=== PATIENT | female | born 1970 | race Caucasian/White ===

== ENCOUNTER 2023-08-20 02:20 | Emergency (ER) | payer BC, SELFPAY ==
--- NOTE | 2023-08-20 | ECG_ITS ---
Test Reason : FALL Blood Pressure : / mmHG Vent. Rate : 068 BPM Atrial Rate : 068 BPM P-R Int : 116 ms QRS Dur : 090 ms QT Int : 450 ms P-R-T Axes : 084 070 060 degrees QTc Int : 478 ms Normal sinus rhythm T wave abnormality, consider anterior ischemia Abnormal ECG No previous ECGs available Referred By: Generic ED Physician Electronically Signed By:HEIDY KIRKPATRICK
--- NOTE | ~2023-08-20 | US_ITS ---
EXAMINATION: US VENOUS ULTRASOUND WITH DOPPLER LOWER EXTREMITY, LEFT CLINICAL INFORMATION: Syncope. Elevated d-dimer. Pain. COMPARISON: None available. TECHNIQUE: Ultrasound of the deep veins is performed from the hip to the calf with compression sonography and color and pulse Doppler assessment. Spectral analysis with color-flow imaging is performed. FINDINGS: There is normal venous compression and respiratory variation and augmented flow. The visualized common femoral vein, superficial femoral vein, profunda femoral vein, popliteal vein, and the trifurcation region shows no evidence of deep venous thrombosis. There is no significant popliteal fossa cyst. US/US venous duplex LE LT IMPRESSION: No DVT demonstrated in the left lower extremity.
--- NOTE | ~2023-08-20 | CT_ITS ---
EXAMINATION: CT HEAD WITHOUT CONTRAST CT CERVICAL SPINE WITHOUT CONTRAST CLINICAL INFORMATION: Fall. Pain. COMPARISON: None available. TECHNIQUE: Contiguous axial imaging was performed through the head and cervical spine without intravenous administration of contrast. Sagittal and coronal reformatted images obtained. This CT examination was performed using dose optimization techniques as appropriate, variously including the following: *Automated exposure control *Adjustment of mA and/or kV according to patient size (this includes techniques or standardized protocols for targeted exams where dose is matched to indication/reason for exam; i.e. extremities or head) *Use of iterative reconstruction technique DLP: 819 mGy-cm FINDINGS: The lateral, third and fourth ventricles are normally outlined. The cortical sulci and basal cisterns are normally outlined as well. There is no acute territorial defect, hemorrhage or midline shift. The extra-axial spaces are unremarkable. Calvarium/scalp:: Intact. There is mild left forehead soft tissue swelling. Maxillofacial sinuses and mastoids: Clear as visualized. Cervical spine: There is straightening of the expected cervical spine curvature. There are there is mild C5-C6 7 disc degenerative change with loss of disc space, endplate change and mild posterior osteophytes associated with scattered facet osteoarthritic degenerative change without significant spinal canal or significant neural foraminal narrowing there is no fracture. 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 CT/CT head/brain wo IV con IMPRESSION: No acute intracranial abnormality. Mild left forehead soft tissue swelling. C5-C6 disc degenerative change with straightening of the expected cervical spine curvature. No fracture identified.
--- NOTE | ~2023-08-20 | CT_ITS ---
EXAMINATION: CT HEAD WITHOUT CONTRAST CT CERVICAL SPINE WITHOUT CONTRAST CLINICAL INFORMATION: Fall. Pain. COMPARISON: None available. TECHNIQUE: Contiguous axial imaging was performed through the head and cervical spine without intravenous administration of contrast. Sagittal and coronal reformatted images obtained. This CT examination was performed using dose optimization techniques as appropriate, variously including the following: *Automated exposure control *Adjustment of mA and/or kV according to patient size (this includes techniques or standardized protocols for targeted exams where dose is matched to indication/reason for exam; i.e. extremities or head) *Use of iterative reconstruction technique DLP: 819 mGy-cm FINDINGS: The lateral, third and fourth ventricles are normally outlined. The cortical sulci and basal cisterns are normally outlined as well. There is no acute territorial defect, hemorrhage or midline shift. The extra-axial spaces are unremarkable. Calvarium/scalp:: Intact. There is mild left forehead soft tissue swelling. Maxillofacial sinuses and mastoids: Clear as visualized. Cervical spine: There is straightening of the expected cervical spine curvature. There are there is mild C5-C6 7 disc degenerative change with loss of disc space, endplate change and mild posterior osteophytes associated with scattered facet osteoarthritic degenerative change without significant spinal canal or significant neural foraminal narrowing there is no fracture. 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 CT/CT cervical spine wo IV con IMPRESSION: No acute intracranial abnormality. Mild left forehead soft tissue swelling. C5-C6 disc degenerative change with straightening of the expected cervical spine curvature. No fracture identified.
--- NOTE | ~2023-08-20 | CT_ITS ---
EXAMINATION: CT ANGIOGRAM OF THE CHEST WITH AND WITHOUT CONTRAST (CT PULMONARY ANGIOGRAM FOR PE) CLINICAL INFORMATION: Reason for Exam syncope, leg pain, elevated dimer COMPARISON: None available. TECHNIQUE: Prior to contrast administration, noncontrast localization images were obtained. Subsequently, multidetector volumetric imaging was performed from the thoracic inlet to below the diaphragms following the administration of 80 mL Omnipaque 350 intravenous contrast. No contrast reaction reported Sagittal, coronal, and MIP oblique sagittal reformatted images were obtained on the CT workstation, uploaded to PACS, and reviewed. This CT examination was performed using dose optimization techniques as appropriate, variously including the following: *Automated exposure control *Adjustment of mA and/or kV according to patient size (this includes techniques or standardized protocols for targeted exams where dose is matched to indication/reason for exam; i.e. extremities or head) *Use of iterative reconstruction technique Total exam dose-length product 156 mGy-cm FINDINGS: QUALITY OF STUDY/CONTRAST BOLUS: Satisfactory. PULMONARY ARTERIES: No pulmonary emboli. THORACIC AORTA: No aneurysm. LUNG: No focal consolidation, nodules or masses. PLEURA: No pleural effusion or pneumothorax. MEDIASTINUM: Normal heart size. No pericardial effusion. No hilar or mediastinal lymphadenopathy. No evidence of septal bowing or right heart strain. CORONARY ARTERY CALCIFICATION: None visualized on this study. CHEST WALL/AXILLA: No axillary or internal mammary lymphadenopathy. OSSEOUS STRUCTURES: No acute or suspicious osseous abnormality. UPPER ABDOMEN: Unremarkable. Gallbladder has been removed No reflux of contrast into the hepatic veins to suggest elevated right heart pressures. CT/CT angio chest PE protocol IMPRESSION: No evidence of pulmonary embolism VTE: negative
[2023-08-20 02:42] VITALS: BP 109/68; PULSE 70; RESP 16; TEMP 36.4; O2SAT 99; BMI 20.4
--- OUTSIDE RECORDS SUMMARY | 2023-08-20 02:59 | XMS_ITS | Continuity of Care Document ---
Author Name Unknown Organization [facility] Address [address] [place] [address]- Care Team Providers Care Machinist Apprentice Name Role Phone Francine Miranda NP Primary Care Physician [facility] Date(s): 08/13/22 - 12/11/22 [facility] [address] [place] [address]- Attending Physician: Nagi Judd MD Referring Physician: Francine Miranda NP Allergies, Adverse Reactions, Alerts No Known Medication Allergies Medications calcium-vitamin D extended release 2 tablet, By Mouth, Daily in AM, 0 Refills, Maintenance, 11/25/14 9:56:25 Start Date: 11/25/14 Status: Ordered gabapentin 300 mg oral capsule 300 mg, 1, capsule, By Mouth, Daily at bedtime, Refills 0, Maintenance, 03/27/21 16:04:00 EDT, Partial fill upon patient request if the prescription is for a schedule II opioid drug. Start Date: 03/27/21 Status: Ordered LORazepam 0.5 mg oral tablet See Instructions, 1 tablet PO PRN, 0 Refills, Maintenance, 03/31/18 14:10:55 EDT Start Date: 03/31/18 Status: Ordered metoprolol 25 mg oral tablet 12.5 mg, 0.5, tablet, By Mouth, 2 times a day, # 30 tablet, Refills 11, Tot. Refills 11, Maintenance, 04/29/21 9:15:00 EDT, Route to Pharmacy Electronically, [facility]/pharmacy #[id number], 160, cm, 03/27/21 16:03:00 EDT, Height, 52.3, kg, 03/26/21 23:52:00 EDT,... Start Date: 04/29/21 Stop Date: 04/24/22 Status: Ordered Multivitamin By Mouth, Daily, 0 Refills, Maintenance, 11/25/14 9:56:14 Start Date: 11/25/14 Status: Ordered Prozac 20 mg oral capsule 2 capsule = 40 mg, By Mouth, Daily, 0 Refills, Maintenance, 11/25/14 9:55:37 EDT Start Date: 11/25/14 Status: Ordered Problem List Condition Confirmation Course Effective Dates Status H ealth Status Informant Supraventricular tachycardia Confirmed Active Social History Social History Type Response Smoking Status Never smoker entered on: 11/25/14 Sex Patient Care team information Care Team Personnel Name: Francine Miranda NP Position: [facility] Outreach Member Role: PCP Address: Address: [address] [facility] [place] [address]- Care Team Related Persons Name: TRENTON GRIFFIN Address: home [address] [place] [address] Name: MICHELLE OBRIEN Address: [place] [address]
--- OUTSIDE RECORDS SUMMARY | 2023-08-20 02:59 | XMS_ITS | Continuity of Care Document ---
Author Name Unknown Organization [facility] Address [address] [place] [address]- Care Team Providers Care Construction Ironworker Helper Name Role Phone Ruth KASPER, Francine Primary Care Physician [place] [facility] [place] Date(s): 03/30/21 - 04/29/21 [facility] [address] [place] [address]- [place] Allergies, Adverse Reactions, Alerts No Known Medication [...] Status: Ordered LORazepam 0.5 mg oral tablet 1 tablet = 0.5 mg, 0 Refills, Maintenance, 03/31/18 14:10:55 EDT Start Date: 03/31/18 Status: Ordered metoprolol 25 mg oral tablet 12.5 mg, 0.5, tablet, By Mouth, 2 times a day, # 30 tablet, Refills 11, Tot. Refills 11, Maintenance, 04/29/21 9:15:00 EDT, Route to Pharmacy Electronically, [facility]/pharmacy #[id number], 160, cm, 03/27/21 16:03:00 EDT, Height, 52.3, kg, 03/26/21 23:52:00 EDT,... Start Date: 04/29/21 Stop Date: 04/24/22 Status: Ordered Multivitamin By Mouth, Daily, 0 Refills, Maintenance, 11/25/14 9:56:14 Start Date: 11/25/14 Status: Ordered Prozac 20 mg oral capsule 2 capsule = 40 mg, By Mouth, Daily, 0 Refills, Maintenance, 11/25/14 9:55:37 EDT Start Date: 11/25/14 Status: Ordered Wellbutrin SR 150 mg oral tablet, extended release 1 tablet = 150 mg, By Mouth, 2 times a day, 0 Refills, Maintenance, 11/25/14 9:55:48 Start Date: 11/25/14 Status: Ordered Problem List Condition Effective Dates Status Health Status Inform ant Supraventricular tachycardia(Confirmed) Active Social History Social History Type Response Smoking Status Never smoker entered on: 11/25/14 Sex
--- OUTSIDE RECORDS SUMMARY | 2023-08-20 02:59 | XMS_ITS | Continuity of Care Document ---
Author Name Unknown Organization [facility] Address [address] [place] [address]- Care Team Providers Care Marketing Effectiveness Manager Name Role Phone Ruth KASPER, Francine Primary Care Physician [phone] Encounter [facility] Date(s): 06/02/21 - 07/02/21 [facility] [address] [place] [address]- [place] Allergies, Adverse Reactions, Alerts No Known [...] 04/29/21 9:15:00 EDT, Route to Pharmacy Electronically, [facility]/pharmacy #[id number], 160, cm, 03/27/21 16:03:00 EDT, Height, 52.3, [...]
--- OUTSIDE RECORDS SUMMARY | 2023-08-20 02:59 | XMS_ITS | Continuity of Care Document ---
Author Name Unknown Organization [facility] Address [address] [place] [address]- Care Team Providers Care Dye Range Feeder Name Role Phone Ruth KASPER, Francine Primary Care Physician [place] [facility] [place]23 - 07/02/23 [facility] [address] [place] [address]- Attending Physician: Heather Mary Admitting Physician: AdmtrHeather Referring Physician: AdmtrHeather Allergies, Adverse Reactions, Alerts No Known Medication [...] 04/29/21 9:15:00 EDT, Route to Pharmacy Electronically, [facility]/pharmacy #[id number], 160, cm, 03/27/21 16:03:00 EDT, Height, [...] Team Personnel Name: Francine Miranda NP Position: [facility] Outreach Member Role: PCP Address: Address: [address] [place] [address] [place] [address]- Care Team Related Persons Name: TRENTON GRIFFIN Address: home [address] [place] [address] Name: MICHELLE OBRIEN Address: [place] [address]
--- OUTSIDE RECORDS SUMMARY | 2023-08-20 03:00 | XMS_ITS | Continuity of Care Document ---
Author Name Unknown Organization [facility] Address [address] [address]- Care Team Providers Care Director Global Strategic Publisher Sales Name Role Phone Francine Miranda NP Primary Care Physician [phone] Encounter [facility] [id number] Date(s): 04/29/21 - 05/06/21 [facility] [address] [address]- Attending Physician: Nagi Judd MD Admitting Physician: Nagi Judd MD Referring Physician: Nagi Judd MD Allergies, Adverse Reactions, Alerts No Known Medication [...] 04/29/21 9:15:00 EDT, Route to Pharmacy Electronically, [facility]/pharmacy #[id number], 160, cm, 03/27/21 16:03:00 EDT, Height, [...]
--- OUTSIDE RECORDS SUMMARY | 2023-08-20 03:00 | XMS_ITS | Continuity of Care Document ---
Author Name Unknown Organization [facility] Address [address] [place] [address]- Care Team Providers Care Poultry Inseminator Name Role Phone Ruth KASPER, Francine Primary Care Physician Encounter [facility] [place] Date(s): 11/20/21 - 02/14/22 [facility] [address] [place] [address]- Attending Physician: Crissy Larson NP Admitting Physician: Crissy Larson NP Referring Physician: Francine Miranda NP Allergies, Adverse [...] 04/29/21 9:15:00 EDT, Route to Pharmacy Electronically, [facility]/pharmacy #[id number], 160, cm, 03/27/21 16:03:00 EDT, [...]
--- OUTSIDE RECORDS SUMMARY | 2023-08-20 03:00 | XMS_ITS | Continuity of Care Document ---
Author Name Unknown Organization [facility] Address [address] [place] [address]- Care Team Providers Care Auto Parker Name Role Phone Ruth KASPER, Francine Primary Care Physician Encounter [facility] [place] Date(s): 10/05/19 - 10/15/19 [facility] [address] [place] [address]- [facility] Attending Physician: Heather Mary Admitting Physician: Heather Mary Referring Physician: AdmtrHeather Allergies, Adverse Reactions, Alerts No Known Medication Allergies Medications calcium-vitamin D extended release 2 tablet, By Mouth, Daily in AM, 0 Refills, Maintenance, 11/25/14 9:56:25 Start Date: 11/25/14 Status: Ordered LORazepam 0.5 mg oral tablet 1 tablet = 0.5 mg, 0 Refills, Maintenance, 03/31/18 14:10:55 EDT Start Date: 03/31/18 Status: Ordered metoprolol 25 mg oral tablet 12.5 mg, 0.5, tablet, By Mouth, 2 times a day, PRN, # 30 tablet, Refills 0, Tot. Refills 0, Maintenance, palpitations, 06/22/19 8:59:38 EDT, Route to Pharmacy Electronically, [id number], [facility]/pharmacy #[id number] Start Date: 06/22/19 Status: Ordered Multivitamin By Mouth, Daily, 0 [...]
--- OUTSIDE RECORDS SUMMARY | 2023-08-20 03:00 | XMS_ITS | Continuity of Care Document ---
Author Name Unknown Organization [facility] Address [address] [place] [address]- Care Team Providers Care Property Appraiser Name Role Phone Ruth KASPER, Francine Primary Care Physician [place] [facility] [place] Date(s): 09/26/20 - 10/26/20 [facility] [address] [place] [address] Attending Physician: Heather Mary Admitting Physician: AdmHeather gordon Referring Physician: Admtr ArLizzette Allergies, Adverse Reactions, Alerts No Known Medication [...] 06/22/19 8:59:38 EDT, Route to Pharmacy Electronically, [id number], [facility]/pharmacy #[id number] Start Date: 06/22/19 Status: Ordered Multivitamin By [...]
--- OUTSIDE RECORDS SUMMARY | 2023-08-20 03:00 | XMS_ITS | Continuity of Care Document ---
Author Name Unknown Organization [facility] Address [address] [address]- Care Team Providers Care Automotive Engineer Name Role Phone Francine Miranda NP Primary Care Physician [phone] [id number] 04/29/21 - 05/29/21 [facility] [address] [address]- Attending Physician: Heather Mary Admitting Physician: Heather Mary Referring Physician: Heather Mary Allergies, Adverse Reactions, Alerts No Known Medication [...] 04/29/21 9:15:00 EDT, Route to Pharmacy Electronically, [facility]/pharmacy #[id number], 160, cm, 03/27/21 16:03:00 [...]
--- OUTSIDE RECORDS SUMMARY | 2023-08-20 03:00 | XMS_ITS | Continuity of Care Document ---
Author Name Unknown Organization [facility] Address [address] [place] [address]- Care Team Providers Care Hand Tufter Name Role Phone Ruth KASPER, Francine Primary Care Physician [place] [facility] [place] 05/22/21 - 06/21/21 [facility] [address] [place] [address]- [place] Allergies, Adverse Reactions, Alerts No Known [...] 04/29/21 9:15:00 EDT, Route to Pharmacy Electronically, [facility]/pharmacy #[id number], 160, cm, 03/27/21 16:03:00 EDT, Height, 52.3, [...]
--- OUTSIDE RECORDS SUMMARY | 2023-08-20 03:00 | XMS_ITS | Continuity of Care Document ---
Author Name Unknown Organization [facility] Address [address] [place] [address]- Care Team Providers Care Paper Novelty Maker Name Role Phone Francine Miranda NP Primary Care Physician [place] [facility] [place]23 [place] 06/09/23 [facility] [address] [place] [address]- Attending Physician: Nagi Judd MD Referring Physician: [...] 9:15:00 EDT, Route to Pharmacy Electronically, [facility]/pharmacy #[id number], 160, cm, 03/27/21 16:03:00 EDT, [...] ealth Status Informant Supraventricular tachycardia Confirmed Active Vital Signs Most recent to oldest [Reference Range]: 1 Height 160 cm (06/02/23 3:39 PM) Weight 51.3 kg (06/02/23 3:39 PM) Oxygen Saturation [94-100 %] 100 % (06/02/23 3:39 PM) Pulse Rate [55-90 bpm] 68 bpm (06/02/23 3:39 PM) Body Mass Index [18.5-24.99 kg/m2] 20.04 kg/m2 (06/02/23 3:39 PM) Blood Pressure [90-138/55-84 mm Hg] 102/ 70mm Hg (06/02/23 3:39 PM) Mode of Delivery (Oxygen) Room air (06/02/23 3:39 PM) Blood pressure sites Arm, left (06/02/23 3:39 PM) Social History Social History Type Response Smoking Status Never smoker entered on: 11/25/14 Sex Cardiology Outpatient Note * Binta ERVIN, Nagi Vela: PERFORM Event Display: Cardiology Note Office Authored Date: Patient: ??CESILIA OBRIEN ? Age:??53 Years?Sex:??Female?:??1970?? Patient Hx Cardiology Shared Clinical Summary Problem list: 1.?? SVT Indication for Consult follow up palpitations History of Present Illness/Interval History It was a pleasure seeing Cesilia in follow-up. 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 ??She states that she lovesher new work. ??She has not had palpitations in months. ??She goes to the gym on the weekends??doing weights and cardio, and walks during the week??for exercise. ??In addition she rides a stationary bicycle??for exercise when the weather is inclement.?? She denies any??chest pain, orthopnea, PND, syncope, presyncope, or other worrisome cardiovascular symptoms. Review of Systems 10+ system ROS performed, pertinent positives and negatives in HPI and below. ??See scanned patientquestionnaire. Physical Exam Vitals & Measurements HR:??68??(Peripheral)?? BP:??102/70?? SpO2:??100%?? HT:??160??cm?? WT:??51.3??kg?? BMI:??20.04?? Weight lb/oz: 113 lb 2 oz Gen: pleasant, in no distress on room air Resp: lungs clear to auscultation bilaterally CV: normal rate, regular rhythm, no murmurs rubs or gallops. Ext: ??No JVD. ??No lower extremity edema. No carotid bruits.?? Assessment/Plan 53-year-old female with history of??supraventricular tachycardia presents for follow-up. ??Doing extremely well with no palpitations.?? We will make no changes. ??Continue metoprolol at current dose.?? She can follow-up with cardiology on an as-needed basis. ??She is very happy to hear this news. 1.??Supraventricular tachycardia ? The above note was prepared with the help of voice recognition software. Please excuse any grammatical or spelling errors that may have occurred. ?? Thank you for involving me in the care of this patient. ??Please do not hesitate to contact me withquestions or concerns. ?? Nagi Judd MD [facility] [phone] ?? [address] [id number] Allergies No Known Medication Allergies Home Medications calcium-vitamin D extended release, 2 tablet, By Mouth, Daily in AM gabapentin 300 mg oral capsule, 300 mg= 1 capsule, By Mouth, Daily at bedtime LORazepam 0.5 mg oral tablet, See Instructions metoprolol 25 mg oral tablet, 12.5 mg= 0.5 tablet, By Mouth, 2 times a day, 11 refills Multivitamin, By Mouth, Daily Prozac 20 mg oral capsule, 40 mg= 2 capsule, By Mouth, Daily Diagnostic Impression Echo Echocardiogram - Complete ?? 13:41:42 Summary Normal LV systolic function (EF 55-65%). No significant wall motion abnormalities. Normal LV diastolic function. Normal LV size. Normal LV wall thickness. ?? Normal RV systolic function. Normal RV size. ?? No significant valvular abnormalities. ?? Comparison No prior study available for comparison. ?? Signature ?? Signed By: Gabo ERVIN, Tequila Garland Problem List/Past Medical History Ongoing Supraventricular tachycardia Procedure/Surgical History Excisional biopsy of breast with preoperative localization: 01/03/15 Social History Tobacco Never smoker Family History No family history recorded. Patient Care team information Care Team Personnel Name: Francine Miranda NP Position: [facility] Outreach Member Role: PCP Address: Address: [address] [facility] [place] [address]- Care Team Related Persons Name: TRENTON GRIFFIN Address: home [address] [place] [address] Name: MICHELLE BORIEN Address: [place] [address]
--- OUTSIDE RECORDS SUMMARY | 2023-08-20 03:00 | XMS_ITS | Continuity of Care Document ---
Author Name Unknown Organization [facility] Address [address] [place] [address]- Care Team Providers Care Chief Transfer And Pumphouse Operator Name Role Phone Francine Miranda NP Primary Care Physician En[place] [facility] [place] [place] R [id number] Date(s): 11/11/22 - 12/11/22 [facility] [address] [place] [address]- Attending Physician: Heather Mary Admitting Physician: Heather [...] 04/29/21 9:15:00 EDT, Route to Pharmacy Electronically, [facility]/pharmacy #[id number], 160, cm, 03/27/21 16:03:00 EDT, Height, 52.3, [...] Team Personnel Name: Francine Miranda NP Position: [facility] Outreach Member Role: PCP Address: Address: [address] [facility] [place] [address]- Care Team Related Persons Name: TRENTON GRIFFIN Address: home [address] [place] [address] Name: MICHELLE OBRIEN Address: [place] [address]
--- OUTSIDE RECORDS SUMMARY | 2023-08-20 03:00 | XMS_ITS | Continuity of Care Document ---
Author Name Unknown Organization [facility] Address [address] [place] [address]- Care Team Providers Care Record Keeper Name Role Phone Ruth KASPER, Francine Primary Care Physician Encounter [facility] [place] Date(s): 09/19/20 - 10/19/20 [facility] [address] [place] [address] Attending Physician: Heather Mary Admitting Physician: AdmHeather gordon Referring Physician: AdmtrHeather Allergies, Adverse Reactions, Alerts [...] 06/22/19 8:59:38 EDT, Route to Pharmacy Electronically, [id number], [facility]/pharmacy #[id number] Start Date: 06/22/19 Status: Ordered Multivitamin By [...]
--- OUTSIDE RECORDS SUMMARY | 2023-08-20 03:00 | XMS_ITS | Continuity of Care Document ---
Author Name Unknown Organization [facility] Address [address] [place] [address]- Care Team Providers Care Drophammer Operator Name Role Phone Francine Miranda NP Primary Care Physician [place] [facility] [place]/17/22 - 03/19/22 [facility] [address] [place] [address]- [place] Allergies, Adverse Reactions, Alerts No Known [...] 04/29/21 9:15:00 EDT, Route to Pharmacy Electronically, [facility]/pharmacy #[id number], 160, cm, 03/27/21 16:03:00 EDT, Height, [...]
--- OUTSIDE RECORDS SUMMARY | 2023-08-20 03:00 | XMS_ITS | Continuity of Care Document ---
Author Name Unknown Organization [facility] Address [address] [place] [address]- Care Team Providers Care Property Disposal Officer Name Role Phone Ruth KASPER, Francine Primary Care Physician [phone] Encounter [facility] [place] Date(s): 05/12/21 - 06/11/21 [facility] [address] [place] [address]- [place] Allergies, Adverse Reactions, Alerts No Known [...] 04/29/21 9:15:00 EDT, Route to Pharmacy Electronically, [facility]/pharmacy #[id number], 160, cm, 03/27/21 16:03:00 EDT, Height, 52.3, [...]
--- OUTSIDE RECORDS SUMMARY | 2023-08-20 03:00 | XMS_ITS | Continuity of Care Document ---
Author Name Unknown Organization [facility] Address [address] [place] [address]- Care Team Providers Care Telephone Directory Deliverer Name Role Phone Ruth KASPER, Francine Primary Care Physician [phone] [facility] [place] Date(s): 04/07/21 - 05/07/21 [facility] [address] [place] [address]- [place] Allergies, Adverse Reactions, Alerts No Known [...] 04/29/21 9:15:00 EDT, Route to Pharmacy Electronically, [facility]/pharmacy #[id number], 160, cm, 03/27/21 16:03:00 EDT, Height, 52.3, [...]
--- OUTSIDE RECORDS SUMMARY | 2023-08-20 03:00 | XMS_ITS | Continuity of Care Document ---
Author Name Unknown Organization [facility] Address [address] [place] [address]- Care Team Providers Care Plug Machine Operator Name Role Phone Francine Miranda NP Primary Care Physician [phone] Encounter [facility] [place] Date(s): 10/29/22 - 11/28/22 [facility] [address] [place] [address]- Allergies, Adverse Reactions, Alerts No Known Medication [...] 04/29/21 9:15:00 EDT, Route to Pharmacy Electronically, [facility]/pharmacy #[id number], 160, cm, 03/27/21 16:03:00 EDT, Height, 52.3, [...] Team Personnel Name: Francine Miranda NP Position: [facility] Outreach Member Role: PCP Address: Address: [address] [place] [address] [place] [address]- Care Team Related Persons Name: TRENTON GRIFFIN Address: home [address] [place] [address] Name: MICHELLE OBRIEN Address: [place] [address]
--- OUTSIDE RECORDS SUMMARY | 2023-08-20 03:00 | XMS_ITS | Continuity of Care Document ---
Author Name Unknown Organization [facility] Address [address] [place] [address]- Care Team Providers Care Welfare Eligibility Interviewer Name Role Phone Ruth KASPER, Francine Primary Care Physician [phone] [place] [facility] [place]21 - 01/03/22 [facility] [address] [place] [address]- Attending Physician: Nagi Judd MD Referring Physician: [...] 9:15:00 EDT, Route to Pharmacy Electronically, [facility]/pharmacy #[id number], 160, cm, 03/27/21 16:03:00 EDT, Height, 52.3, [...]
--- OUTSIDE RECORDS SUMMARY | 2023-08-20 03:00 | XMS_ITS | Continuity of Care Document ---
Author Name Unknown Organization [facility] Address [address] [place] [address]- Care Team Providers Care Bank Guard Name Role Phone Francine Miranda NP Primary Care Physician En[place] [facility] [place] Date(s): 09/19/20 - 09/26/20 [facility] [address] [place] [id number] Encounter Diagnosis Supraventricular tachycardia(Discharge Diagnosis) - 09/19/20 Attending Physician: Nagi Judd MD Referring Physician: [...] 06/22/19 8:59:38 EDT, Route to Pharmacy Electronically, [id number], [facility]/pharmacy #[id number] Start Date: 06/22/19 Status: Ordered Multivitamin By [...] Health Status Inform ant Supraventricular tachycardia(Confirmed) Active Diagnosis Diagnosis Type Effective Dates Health Status Clinical Service Informant Supraventricular tachycardia Discharge Diagnosis 09/19/20 Social History Social History Type Response Smoking Status Never smoker entered on: 11/25/14 Sex
--- OUTSIDE RECORDS SUMMARY | 2023-08-20 03:00 | XMS_ITS | Continuity of Care Document ---
Author Name Unknown Organization [facility] Address [address] [place] [address]- Care Team Providers Care Statistical Machine Servicer Name Role Phone Ruth KASPER, Francine Primary Care Physician Encounter [facility] [place] Date(s): 04/29/21 - 05/29/21 [facility] [address] [place] [address]- [place] Allergies, Adverse Reactions, Alerts No Known [...] 04/29/21 9:15:00 EDT, Route to Pharmacy Electronically, [facility]/pharmacy #[id number], 160, cm, 03/27/21 16:03:00 EDT, Height, 52.3, [...]
--- OUTSIDE RECORDS SUMMARY | 2023-08-20 03:00 | XMS_ITS | Continuity of Care Document ---
Author Name Unknown Organization [facility] Address [address] [place] [address]- Care Team Providers Care Time Study Statistician Name Role Phone Ruth KASPER, Francine Primary Care Physician [place] [facility] [place] 12/04/21 - 01/03/22 [facility] [address] [place] [address]- Attending Physician: Heather Mray Admitting Physician: AdmtrHeather Referring Physician: AdmtrHeather Allergies, [...] 9:15:00 EDT, Route to Pharmacy Electronically, [facility]/pharmacy #[id number], 160, cm, 03/27/21 16:03:00 EDT, Height, 52.3, [...]
--- OUTSIDE RECORDS SUMMARY | 2023-08-20 03:00 | XMS_ITS | Continuity of Care Document ---
Author Name Unknown Organization [facility] Address [address] [place] [address]- Care Team Providers Care Moth Exterminator Name Role Phone Francine Miranda NP Primary Care Physician [phone] Encounter [facility] [place] Date(s): 10/05/19 - 10/12/19 [facility] [address] [place] [address]- [place] Encounter Diagnosis Supraventricular tachycardia(Discharge Diagnosis) - 10/05/19 Attending Physician: Nagi Judd MD Referring Physician: [...] 06/22/19 8:59:38 EDT, Route to Pharmacy Electronically, [id number], [facility]/pharmacy #[id number] Start Date: 06/22/19 Status: Ordered Multivitamin By [...] Clinical Service Informant Supraventricular tachycardia Discharge Diagnosis 10/05/19 Vital Signs Most recent to oldest [Reference Range]: 1 Height 163.4 cm (10/05/19 4:12 PM) Weight 52.8 kg (10/05/19 4:12 PM) Oxygen Saturation [94-100 %] 98 % (10/05/19 4:12 PM) Pulse Rate [55-90 bpm] 71 bpm (10/05/19 4:12 PM) Body Mass Index [18.5-24.99] 19.78 (10/05/19 4:12 PM) Blood Pressure [90-138/55-84 mm Hg] 107/ 57mm Hg (10/05/19 4:12 PM) Weight Obtained Via Bed scale (10/05/19 4:12 PM) Social History Social History Type Response Smoking Status Never smoker entered on: 11/25/14 Sex
--- OUTSIDE RECORDS SUMMARY | 2023-08-20 03:00 | XMS_ITS | Continuity of Care Document ---
Author Name Unknown Organization [facility] Address [address] [place] [address]- Care Team Providers Care Nozzle Operator Name Role Phone Ruth KASPER, Francine Primary Care Physician [phone] Encounter [facility] [place] Date(s): 05/05/21 - 06/04/21 [facility] [address] [place] [address]- [place] Allergies, Adverse Reactions, Alerts No Known [...] 04/29/21 9:15:00 EDT, Route to Pharmacy Electronically, [facility]/pharmacy #[id number], 160, cm, 03/27/21 16:03:00 EDT, Height, 52.3, [...]
--- OUTSIDE RECORDS SUMMARY | 2023-08-20 03:01 | XMS_ITS | Continuity of Care Document ---
Author Name Unknown Organization [facility] Address [address] [place] [address]- Care Team Providers Care Senior Commissary Agent Name Role Phone Ruth KASPER, Francine Primary Care Physician [phone] [place] [facility] [place] 03/12/22 - 04/11/22 [facility] [address] [place] [address]- Attending Physician: eHather Mary Admitting Physician: AdmHeather gordon Referring Physician: [...] 04/29/21 9:15:00 EDT, Route to Pharmacy Electronically, [facility]/pharmacy #[id number], 160, cm, 03/27/21 16:03:00 EDT, [...]
--- OUTSIDE RECORDS SUMMARY | 2023-08-20 03:01 | XMS_ITS | Continuity of Care Document ---
Author Name Unknown Organization [facility] Address [address] [address]- Care Team Providers Care Retinal Angiographer Name Role Phone Francine Miranda NP Primary Care Physician [phone] Encounter [facility] [place] Date(s): 04/03/21 - 04/10/21 [facility] [address] [address]- Attending Physician: Nagi Judd MD Admitting Physician: [...] 06/22/19 8:59:38 EDT, Route to Pharmacy Electronically, [id number], [facility]/pharmacy #[id number] Start Date: 06/22/19 Status: Ordered Multivitamin By [...]
--- OUTSIDE RECORDS SUMMARY | 2023-08-20 03:01 | XMS_ITS | Continuity of Care Document ---
Author Name Unknown Organization [facility] Address [address] [place] [address]- Care Team Providers Care Freezer Unloader Name Role Phone Francine Miranda NP Primary Care Physician Encounter [facility] [place] Date(s): 03/27/21 - 04/03/21 [facility] [address] [place] [address] Encounter Diagnosis Supraventricular tachycardia(Discharge Diagnosis) - 03/27/21 Attending Physician: Binta ERVIN, Nagi Vela Allergies, Adverse Reactions, Alerts No Known Medication [...] 06/22/19 8:59:38 EDT, Route to Pharmacy Electronically, [id number], [facility]/pharmacy #[id number] Start Date: 06/22/19 Status: Ordered Multivitamin By [...] Clinical Service Informant Supraventricular tachycardia Discharge Diagnosis 03/27/21 Vital Signs Most recent to oldest [Reference Range]: 1 Height 160 cm (03/27/21 4:03 PM) Weight 53.2 kg (03/27/21 4:03 PM) Oxygen Saturation [94-100 %] 98 % (03/27/21 4:03 PM) Pulse Rate [55-90 bpm] 60 bpm (03/27/21 4:03 PM) Body Mass Index [18.5-24.99] 20.78 (03/27/21 4:03 PM) Blood Pressure [90-138/55-84 mm Hg] 90/6 4mm Hg (03/27/21 4:03 PM) Temperature [96.8-100.4 DegF] 96.2 DegF *L* (03/27/21 4:03 PM) Blood pressure sites Arm, right (03/27/21 4:03 PM) Temperature Route Temporal (03/27/21 4:03 PM) Social History Social History Type Response Smoking Status Never smoker entered on: 11/25/14 Sex
--- OUTSIDE RECORDS SUMMARY | 2023-08-20 03:01 | XMS_ITS | Continuity of Care Document ---
Author Name Unknown Organization [facility] Address [address] [place] [address]- Care Team Providers Care Electrical Mechanical Technician Name Role Phone Ruth KASPER, Francine Primary Care Physician Encounter [facility] [place] Date(s): 03/26/21 - 04/25/21 [facility] [address] [place] [id number] Allergies, Adverse Reactions, Alerts No Known Medication [...] 06/22/19 8:59:38 EDT, Route to Pharmacy Electronically, [id number], [facility]/pharmacy #[id number] Start Date: 06/22/19 Status: Ordered Multivitamin By [...]
--- OUTSIDE RECORDS SUMMARY | 2023-08-20 03:01 | XMS_ITS | Continuity of Care Document ---
Author Name Unknown Organization [facility] Address [address] [place] [address]- Care Team Providers Care Pedigree Tracer Name Role Phone Francine Miranda NP Primary Care Physician [phone] Encounter [facility] [place] Date(s): 10/29/20 - 01/28/[address] [address]- Attending Physician: Francine Miranda NP Admitting Physician: Francine Miranda NP Referring Physician: Francine Miranda NP Allergies, [...] 06/22/19 8:59:38 EDT, Route to Pharmacy Electronically, [id number], [facility]/pharmacy #[id number] Start Date: 06/22/19 Status: Ordered Multivitamin By [...]
--- OUTSIDE RECORDS SUMMARY | 2023-08-20 03:01 | XMS_ITS | Continuity of Care Document ---
Author Name Unknown Organization [facility] Address [address] [place] [address]- Care Team Providers Care Thermostat Repairer Name Role Phone Ruth KASPER, Francine Primary Care Physician [phone] Encounter [facility] [place] Date(s): 04/23/21 - 05/23/21 [facility] [address] [place] [address]- [place] Allergies, Adverse Reactions, Alerts No Known [...] 04/29/21 9:15:00 EDT, Route to Pharmacy Electronically, [facility]/pharmacy #[id number], 160, cm, 03/27/21 16:03:00 EDT, Height, 52.3, [...]
--- OUTSIDE RECORDS SUMMARY | 2023-08-20 03:01 | XMS_ITS | Continuity of Care Document ---
Author Name Unknown Organization [facility] Address [address] [place] [address]- Care Team Providers Care Fabric Lay Out Worker Name Role Phone Ruth KASPER, Francine Primary Care Physician [phone] Encounter [facility] Date(s): 05/22/21 - 05/29/21 [facility] [address] [place] [address]- Attending Physician: Nagi Judd MD Referring Physician: [...] 04/29/21 9:15:00 EDT, Route to Pharmacy Electronically, [facility]/pharmacy #[id number], 160, cm, 03/27/21 16:03:00 EDT, Height, 52.3, [...] Health Status Inform ant Supraventricular tachycardia(Confirmed) Active Vital Signs Most recent to oldest [Reference Range]: 1 Height 160 cm (05/22/21 3:35 PM) Weight 54.6 kg (05/22/21 3:35 PM) Oxygen Saturation [94-100 %] 98 % (05/22/21 3:35 PM) Pulse Rate [55-90 bpm] 56 bpm (05/22/21 3:35 PM) Body Mass Index [18.5-24.99] 21.33 (05/22/21 3:35 PM) Blood Pressure [90-138/55-84 mm Hg] 106/ 64mm Hg (05/22/21 3:35 PM) Temperature [96.8-100.4 DegF] 97.3 DegF (05/22/21 3:35 PM) Temperature Route Temporal (05/22/21 3:35 PM) Social History Social History Type Response Smoking Status Never smoker entered on: 11/25/14 Sex
[2023-08-20 03:18] VITALS: BP 104/64; PULSE 67
[2023-08-20 03:19] VITALS: BP 116/65; PULSE 71
[2023-08-20 03:22] VITALS: BP 115/63; PULSE 69
--- NOTE | 2023-08-20 03:24 | PC.NURSE ---
ct scan order entered after consulting Dr. Silva as pt had fall & +headstrike. iv established. labs drawn. ekg obtained. orthos as documented by isela hernandes. pt axox4; steady gait. neuros intact. no bleeding of forehead; bump to L. forehead.
[2023-08-20 03:31] LABS: MANUAL DIFF FLAG NO
[2023-08-20 03:32] LABS: Basophils Percent Auto 0.6 % (0-2); Eosinophils Absolute Auto 0.2 X10*3/uL (0.0-0.4); Eosinophils Percent Auto 3.2 % (0-4); Hematocrit 37.7 % (37.0-47.0); Hemoglobin 12.8 g/dl (12.0-16.0); Imm Gran Abs Auto 0.03 X10*3/uL (0.00-0.03); Imm Gran Pct Auto 0.5 % (0.0-0.4); Lymphocytes Absolute Auto 2.2 X10*3/uL (1.2-4.9); Lymphocytes Percent Auto 34.7 % (20-40); Mean Corpuscular Hemoglobin 29.8 pg (27.0-33.0); Mean Corpuscular Volume 87.9 fL (80.0-98.0); Mean Platelet Volume 9.3 fL (9.4-12.3); Monocytes Absolute Auto 0.7 X10*3/uL (0.1-1.2); Monocytes Percent Auto 11.5 % (2-11); Neutrophils Absolute Auto 3.1 x10*3/uL (2.0-8.3); Neutrophils Percent Auto 49.5 % (45-73); Platelet Count 264 X10*3/uL (160-400); Red Blood Count 4.29 X10*6/uL (4.20-5.50); Red Cell Distribution Width 11.7 % (11.0-16.0); White Blood Count 6.2 X10*3/uL (4.8-10.8)
[2023-08-20 03:40] LABS: D Dimer High Sensitivity 1096 NG/ML
[2023-08-20 03:52] LABS: Alanine Aminotransferase 18 U/L (0-31); Alkaline Phosphatase 66 U/L (39-117); Anion Gap 15 (12-20); Aspartate Amino Transferase 33 U/L (5-31); Bilirubin Total 0.2 mg/dL (0.0-1.0); Blood Urea Nitrogen 11 mg/dL (9-16); Calcium 9.2 mg/dL (8.4-10.2); Carbon Dioxide 27 mmol/L (22-29); Chloride 102 mmol/L (96-108); Creatinine Clr Calc Pharmacy 67.7; Estimated Glomerular Filt Rate > 60; Glucose Random 95 mg/dL (60-115); Potassium 4.5 mmol/L (3.3-5.1); Sodium 139 mmol/L (135-145); Total Protein 7.2 g/dL (6.5-8.0)
[2023-08-20 04:07] LABS: Troponin-I High Sensitivity < 2.7 ng/L (<3.5-17.0)
[2023-08-20 06:44] VITALS: BP 86/48; PULSE 66; RESP 16; O2SAT 97
--- NOTE | 2023-08-20 07:17 | ED_ITS ---
HPI - General Adult General Chief complaint: Fall Stated complaint: Syncope/Hit head Time Seen by Provider: 08/20/23 06:29 Source: patient Mode of arrival: ambulatory Limitations: no limitations History of Present Illness HPI narrative: Patient is a 53-year-old female who presents emergency department for evaluation. She states that approximately 02:00 she woke from sleep and was walking to the bathroom. She had sudden severe cramping pain to the left calf, which she states does happen occasionally for her. She none reports a question of syncopal episode. She states that she next awoke on the bathroom floor, unaware of how she got there. She states that she may have tripped on the bathroom carpet does not recall. She had struck her head against the floor. Upon attempting to stand up she felt very shaky so she crawled to her bedroom. She eventually was able to walk to her son's room and he brought her to the emergency department. When asked she denies any recent history of syncopal episodes. Denies any physical complaints as of recently. Currently denies dizziness, lightheadedness, vision changes, neck pain, neck stiffness, chest pain, shortness of breath, difficulty breathing, palpitations, nausea vomiting, abdominal pain, numbness or tingling of the extremities, recent lower extremity swelling redness or warmth. The pain to the left calf has subsided. Denies personal history of DVT/PE/malignancy, recent surgery or prolonged immobilization, or use of OCP. Related Data Allergies Allergy/AdvReac Type Severity Reaction Status Date / Time No Known Allergies Allergy Verified 08/20/23 02:54 Review of Systems 2 Review of Systems: Yes all other systems are reviewed and are negative [facility] Past Medical History Attestation statement: The following information was validated with the patient. Source: old records reviewed Social History Social History Smoked in Last 30 Days: No Use of substances other than those prescribed or required for medical reasons: No Advance Directives: No Advance Directives Information Provided: Yes Physical Exam ED Vital Signs: Vital Signs - 24 hr 08/20/23 02:42 08/20/23 03:18 08/20/23 03:19 Temperature 97.6 F Pulse Rate 70 67 71 Respiratory Rate 16 Blood Pressure 109/68 104/64 116/65 Pulse Oximetry 99 Oxygen Delivery Method Room Air 08/20/23 03:22 08/20/23 06:44 08/20/23 08:44 Temperature 98.4 F Pulse Rate 69 66 66 Respiratory Rate 16 12 Blood Pressure 115/63 86/48 L 101/56 L Pulse Oximetry 97 99 Oxygen Delivery Method Room Air Room Air BMI result Body Mass Index 20.4 Appearance: Alert.?Oriented to person, place and time. No acute distress.?Normal affect. Head: Left temporal hematoma Eyes: Pupils equal, round and reactive to light.? ENT: Pharynx normal.?? Neck: Normal inspection.? Neck supple.?? CVS: Heart sounds normal. Normal heart rate and rhythm.? Pulses normal.?? Respiratory: No respiratory distress.? Lung sounds clear to auscultation bilaterally?? Abdomen: Soft and non-tender. Normoactive bowel sounds. Skin: Skin warm and dry.? Normal skin color.? Extremities: No lower extremity edema.? No calf ttp? Neuro: Moves all extremities spontaneously. Sensation intact bilaterally. CN II- XII intact. No focal neuro deficits. Ambulates with normal steady gait. Course Reevaluation(s) Reevaluation #1: CT angio of the chest is without evidence of PE. Venous duplex ultrasound is without evidence of DVT. She has not had any further symptoms while in the emergency department. She is ambulatory with a steady gait. No focal neurological deficits. No arrhythmias have been noted on cardiac monitoring. At this time feel that she is stable for discharge home, we discussed the possibility of SVT episode having caused a syncopal episode own. She is requesting discharge home at this time which I think is reasonable. We reviewed worrisome signs and symptoms that would warrant re-evaluation in the emergency department. Discussed signs and symptoms of concussion. Patient plans to follow up outpatient with her primary care provider. Time: 08:55 Medications Administered Discontinued Medications Generic Name Dose Route Start Last Admin Trade Name Floq PRN Reason Stop Dose Admin Acetaminophen 975 mg 08/20/23 07:57 08/20/23 08:42 Acetaminophen 325 Mg Tablet PO 08/20/23 07:58 975 mg ONCE ONE Administration Sodium Chloride 1,000 mls @ 999 mls/hr 08/20/23 07:15 08/20/23 08:42 Ns IV 08/20/23 08:15 999 mls/hr .Q1H1M SAKINA Administration Iohexol 65 ml 08/20/23 07:52 08/20/23 07:52 Iohexol 350 Mg/Ml 100 Ml Infus..Btl IV 08/20/23 07:53 65 ml ONCE ONE Administration Medical Decision Making Medical Decision Making [facility] Narrative: Patient is a 53-year-old female with reported past medical history of SVT s/p of the lesion in 2006 on metoprolol presenting to emergency department for evaluation of ? Syncope versus trip and fall with loss of consciousness as per HPI. At the time of my examination she is overall well-appearing, nontoxic, afebrile. She does have a hematoma to the left temporal region, and reported a headache for which she is requesting acetaminophen. I have reviewed labs and imaging that were obtained prior to my assumption of care. CBC is without leukocytosis or anemia. CMP is overall unremarkable. Orthostatic vital signs are negative. High sensitive troponin is below detectable limits, EKG revealing normal sinus rhythm with ventricular rate of 68, normal TX interval, QTC 478, biphasic T-wave in V3-V4, no ST elevation, no ST depression. Will obtain delta troponin to exclude ACS. A D-dimer is also obtained which is elevated; 1096, concerning for pulmonary embolism based on history, will obtain CT angio of the chest in addition to venous duplex ultrasound of the left lower extremity. Differential Diagnosis Differential Diagnoses: The differential diagnosis associated with the presentation includes (Syncope, intracranial mass, ICH, ACS, PE, arrhythmia, mechanical fall with loss of consciousness) Admission/Observation Consideration of admission/observation: Escalation of care including admission/observation considered (See narrative above and course narrative for further detail) Lab Data [facility] Lab Attestation statement: I reviewed the patient's lab results. (As noted above) 08/20/23 03:25 08/20/23 03:25 Labs: Lab Results 08/20/23 08/20/23 Range/Units 03:25 08:16 WBC 6.2 (4.8-10.8) X10*3/uL RBC 4.29 (4.20-5.50) X10*6/uL Hgb 12.8 (12.0-16.0) g/dl Hct 37.7 (37.0-47.0) % MCV 87.9 (80.0-98.0) fL MCH 29.8 (27.0-33.0) pg MCHC 34.0 (31.0-35.0) g/dl RDW 11.7 (11.0-16.0) % Plt Count 264 (160-400) X10*3/uL MPV 9.3 L (9.4-12.3) fL Immature Gran % (Auto) 0.5 H (0.0-0.4) % Neut % (Auto) 49.5 (45-73) % Lymph % (Auto) 34.7 (20-40) % [place] % (Auto) 11.5 H (2-11) % Eos % (Auto) 3.2 (0-4) % Baso % (Auto) 0.6 (0-2) % Lymph # (Auto) 2.2 (1.2-4.9) X10*3/uL [place] # (Auto) 0.7 (0.1-1.2) X10*3/uL Eos # (Auto) 0.2 (0.0-0.4) X10*3/uL Baso # (Auto) 0.0 (0.0-0.2) X10*3/uL Abs Immat Gran (auto) 0.03 (0.00-0.03) X10*3/uL Absolute Neuts (auto) 3.1 (2.0-8.3) x10*3/uL Absolute Nucleated RBC 0.000 (0.0-0.012) X10*3/uL Nucleated RBC % (auto) 0.0 (0.0-0.2) /100WBC PT 11.0 L (11.1-13.3) SEC INR 0.9 (0.9-1.1) APTT 31.0 (26.0-36.4) SEC D-Dimer High Sensitivty 1096 NG/ML Sodium 139 (135-145) mmol/L Potassium 4.5 (3.3-5.1) mmol/L Chloride 102 (96-108) mmol/L Carbon Dioxide 27 (22-29) mmol/L Anion Gap 15 (12-20) BUN 11 (9-16) mg/dL Creatinine 0.79 (0.5-1.4) mg/dL Estim Creat Clear Calc 67.7 Estimated GFR > 60 Random Glucose 95 (60-115) mg/dL Calcium 9.2 (8.4-10.2) mg/dL Total Bilirubin 0.2 (0.0-1.0) mg/dL AST 33 H (5-31) U/L ALT 18 (0-31) U/L Alkaline Phosphatase 66 (39-117) U/L Troponin I High Sens < 2.7 < 2.7 (<3.5-17.0) ng/L Total Protein 7.2 (6.5-8.0) g/dL Albumin 4.0 (3.5-5.0) g/dL Independent Interpretation I performed an independent interpretation of an: EKG (As noted above), Ultrasound and CT Scan Radiology Impression Discussion of test interpretation with radiology: I have reviewed the radiologist's reading. Radiologist Impression: US/US venous duplex LE LT IMPRESSION: No DVT demonstrated in the left lower extremity. CT/CT angio chest PE protocol IMPRESSION: No evidence of pulmonary embolism VTE: negative Independent Historian Clinical information obtained from an independent historian. History obtained from or confirmed by: Other (Son present at bedside confirms history) Discharge Plan Discharge Clinical Impression: Acute head injury with loss of consciousness Patient Disposition: Home, Self-Care Instructions: Concussion (ED), Head Injury (ED) Referrals: Francine Miranda NP [Primary Care Provider] -
[2023-08-20 07:34] LABS: INTERNATIONAL NORM RATIO 0.9 (0.9-1.1)
[2023-08-20] MEDS: iohexoL 350 MG/ML 100 ML INFUS..BTL 65 ML IV (07:52)
[2023-08-20] MEDS: Acetaminophen 325 MG TABLET 975 MG PO (08:42)
[2023-08-20] MEDS: 0.9 % Sodium Chloride 1,000 ML 999 ML IV (08:42)
[2023-08-20 08:44] VITALS: BP 101/56; PULSE 66; RESP 12; TEMP 36.9; O2SAT 99
[2023-08-20 08:48] LABS: Troponin-I High Sensitivity < 2.7 ng/L (<3.5-17.0)
== END 2023-08-20 09:16 | disposition home or self-care (01) ==
PROVIDERS: Emergency Medicine; Nurse Practitioner Family; Emergency Provider Emergency Medicine Emergency Medical Services; PCP Nurse Practitioner Family
DX: S06.9X9A Unspecified intracranial injury with loss of consciousness of unspecified duration, initial encounter (principal); W18.30XA Fall on same level, unspecified, initial encounter; Y93.89 Activity, other specified; Y92.89 Other specified places as the place of occurrence of the external cause; Y99.9 Unspecified external cause status; M54.2 Cervicalgia; R55 Syncope and collapse; R79.1 Abnormal coagulation profile; M79.605 Pain in left leg
CPT/HCPCS: 36415; 70450; 71275; 72125; 80053; 84484; 85025; 85379; 85610; 85730; 93005; 93971; 99285; Q9967

== ENCOUNTER → 2023-08-20 03:13 | Outpatient (BNV) | payer BC, SELFPAY | PROVIDERS: Emergency Provider Emergency Medicine Emergency Medical Services; PCP Nurse Practitioner Family; Visit Provider Internal Medicine | DX: R94.31 Abnormal electrocardiogram [ECG] [EKG] (principal) | CPT/HCPCS: 93010 ==